=== PATIENT | male | born 1950 | race Caucasian/White ===

== ENCOUNTER 2016-11-18 21:54 | Inpatient (IN) | payer OTHER ==
[~2016-11-18] VITALS: Ht 190.5 cm; Wt 116.8 kg
[~2016-11-18 21:54] MED LIST: AMLO5TAB88 PO; ASPI-986 PO; ATOR10TA PO; INSLIS SUBCUT; LEVVL SUBCUT; LOV30 SUBCUT
[2016-11-18] MEDS ORDERED: ACETAMINOPHEN 325MG TABLET PO STA (22:24)
[2016-11-18] MEDS ORDERED: KETOROLAC 30MG/ML VIAL IV STA (22:24)
[2016-11-18] MEDS ORDERED: VANCOMYCIN 1 G PREMIX 200 ML IV ONE (22:30)
[2016-11-18] MEDS ORDERED: PIPERACILLIN/TAZ 3.375G PREMIX 50 ML IV ONE (22:30)
[2016-11-18] MEDS ORDERED: SODIUM CHLORIDE 0.9% 1000ML BAG (SEPSIS BOLUS) IV ONE (22:30)
[2016-11-18 22:46] LABS: BG BASE EXCESS 3.2 mmol/L (-2.0-2.0); BG CARBOXYHEMOGLOBIN 0.1 % (0.5-1.5); BG FRACTION INSPIRED OXYGEN 21; BG HCO3 ACT 27.8 mmol/L (22.0-26.0); BG METHEMOGLOBIN 0.3 % (0.0-1.5); BG OXYHEMOGLOBIN 91.6 % (94.0-97.0); BG PCO2 42.3 mmHg (35.0-45.0); BG PH 7.436 (7.350-7.450); BG PO2 61.1 mmHg (75.0-100.0); BG SAMPLE SITE RIGHT RADIAL; BG TOTAL HEMOGLOBIN 13.8 g/dL (12.0-18.0); BG VENT MODE ROOM AIR
[2016-11-18 22:48] LABS: CLARITY URINE CLEAR (CLEAR); COLOR URINE YELLOW (YELLOW); GLUCOSE URINE 2+ (NEGATIVE); KETONES URINE NEGATIVE (NEGATIVE); LEUKOCYTE ESTERASE URINE NEGATIVE (NEGATIVE); NITRITE URINE NEGATIVE (NEGATIVE); OCCULT BLOOD URINE NEGATIVE (NEGATIVE); PH URINE 5.5 (4.5-8.0); PROTEIN URINE 4+ (NEGATIVE); SPECIFIC GRAVITY URINE 1.019 (1.005-1.030); UROBILINOGEN URINE 0.2 E.U./dL (0.2-1.0)
[2016-11-18 23:10] LABS: BASOPHILS % 0.5 % (0.0-2.0); EOSINOPHILS % 0.2 % (0.0-5.0); HEMATOCRIT. 38.7 % (42.0-52.0); HEMOGLOBIN. 13.3 g/dL (14.0-18.0); LYMPHOCYTES % 14.3 % (20.0-50.0); MEAN CORPUSCULAR HEMOGLOBIN 32.1 pg (28.0-32.0); MEAN CORPUSCULAR VOLUME 93.6 fL (80.0-94.0); MEAN PLATELET VOLUME 7.6 fl (7.4-10.4); MONOCYTES % 11.4 % (2.0-8.0); NEUTROPHILS % 73.6 % (40.0-76.0); PLATELET 225 x1000/uL (130-400); RED BLOOD CELL COUNT 4.13 mill/uL (4.7-6.1); RED CELL DISTRIBUTION WIDTH 13.4 % (11.6-14.6)
[2016-11-18 23:12] LABS: INR 1.1; PROTHROMBIN TIME 11.4 sec
[2016-11-18 23:18] LABS: *AMPHETAMINES SCREEN URINE NEGATIVE (NEGATIVE); *BARBITURATES SCREEN URINE NEGATIVE (NEGATIVE); *BENZODIAZEPINES SCREEN URINE NEGATIVE (NEGATIVE); *COCAINE SCREEN URINE NEGATIVE (NEGATIVE); CANNABINOID URINE SCREEN NEGATIVE (NEGATIVE); METHADONE URINE SCREEN NEGATIVE (NEGATIVE); OPIATES URINE SCREEN PRESUMTIVE POSITIVE (NEGATIVE); PHENCYCLIDINE URINE SCREEN NEGATIVE (NEGATIVE)
[2016-11-18 23:21] LABS: CARBON DIOXIDE 31 mEq/L (21-32); CHLORIDE 99 mEq/L (98-107); ETHANOL BLOOD < 10 mg/dL; TROPONIN I 0.04 ng/mL (0.00-0.04)
[2016-11-19] VITALS (7 sets, daily range): BP systolic 127–161; BP diastolic 74–102
[2016-11-19] MEDS ORDERED: OSELTAMIVIR 75MG CAPSULE PO ONE (00:15)
[2016-11-19] MEDS ORDERED: CLONIDINE 0.1MG TABLET PO PRN (00:30)
[2016-11-19] MEDS ORDERED: DOCUSATE SODIUM 100MG CAPSULE PO PRN (00:30)
[2016-11-19] MEDS ORDERED: NA PHOS,M-B/NA PHOS,DI-BA ENEMA 118ML PR PRN (00:30)
[2016-11-19] MEDS ORDERED: ONDANSETRON HCL 4MG/2ML VIAL IV PRN (00:30)
[2016-11-19] MEDS ORDERED: HYDROCODONE/ACETAMINOPHEN 5/325MG TABLET PO PRN (00:30)
[2016-11-19] MEDS ORDERED: GUAIFENESIN 200MG/10ML SUGAR FREE UDC PO PRN (00:30)
[2016-11-19] MEDS ORDERED: ACETAMINOPHEN 325MG TABLET PO PRN (00:30)
[2016-11-19] MEDS ORDERED: HYDROMORPHONE HCL/PF 2MG/ML CPJ IV PRN (00:30)
[2016-11-19] MEDS ORDERED: LORAZEPAM 2MG/ML CPJ IV PRN (00:30)
[2016-11-19] MEDS ORDERED: DIPHENHYDRAMINE 50MG/ML VIAL IV PRN (00:30)
[2016-11-19] MEDS ORDERED: MAGNESIUM/ALUMINUM HYDROXIDE/SIMETHICONE 30ML UDC PO PRN (00:30)
[2016-11-19] MEDS ORDERED: DEXTROSE 50% WATER 50ML SYRINGE IV PRN (04:30)
[2016-11-19] MEDS: SODIUM CHLORIDE 0.45% 1,000 ML IV SCH ×2 (05:13→13:00)
[2016-11-19 06:36] LABS: BASOPHILS % 0.4 % (0.0-2.0); EOSINOPHILS % 0.2 % (0.0-5.0); HEMOGLOBIN. 11.6 g/dL (14.0-18.0); LYMPHOCYTES % 29.1 % (20.0-50.0); MEAN CORPUSCULAR HEMOGLOBIN 32.1 pg (28.0-32.0); MEAN CORPUSCULAR VOLUME 94.4 fL (80.0-94.0); MEAN PLATELET VOLUME 8.1 fl (7.4-10.4); MONOCYTES % 14.5 % (2.0-8.0); NEUTROPHILS % 55.8 % (40.0-76.0); PLATELET 185 x1000/uL (130-400); RED CELL DISTRIBUTION WIDTH 13.3 % (11.6-14.6)
[2016-11-19 06:59] LABS: CARBON DIOXIDE 27 mEq/L (21-32); CHLORIDE 105 mEq/L (98-107); HDL CHOLESTEROL 54 mg/dL (40-59); LDL CHOLESTEROL 56 mg/dL (5-100); T4 FREE 1.07 ng/dL (0.76-1.46)
[2016-11-19] MEDS: BLOOD SUGAR DIAGNOSTIC STRIP TEST SCH ×4 (07:40→21:00)
[2016-11-19] MEDS: OSELTAMIVIR 75MG CAPSULE PO SCH ×2 (08:57→20:44)
[2016-11-19] MEDS: ASPIRIN 81MG EC TABLET PO SCH (08:57)
[2016-11-19] MEDS: ENOXAPARIN 30MG/0.3ML SYR SUBCUT SCH ×2 (08:57→20:44)
[2016-11-19] MEDS: INSULIN LISPRO 100 UNITS/ML SUBCUT SCH ×4 (08:58→21:01)
[2016-11-19] MEDS ORDERED: ATOR-2 PO (23:13)
[2016-11-19] MEDS ORDERED: [UNRECOGNIZED DRUG - OTHER] (23:13)
[2016-11-19] MEDS ORDERED: HYDR100T26 PO (23:13)
[2016-11-19] MEDS ORDERED: SENN8.6T60 PO (23:13)
[2016-11-19] MEDS ORDERED: [UNRECOGNIZED DRUG - OTHER] PO (23:13)
[2016-11-19] MEDS ORDERED: BISA5TAB10 PO (23:13)
[2016-11-19] MEDS ORDERED: NIFE-1 PO (23:13)
[2016-11-19] MEDS ORDERED: HYDR-2510 PO (23:13)
[2016-11-19] MEDS ORDERED: FLUO-124 PO (23:13)
[2016-11-19] MEDS ORDERED: AMIO100T4 PO (23:13)
[2016-11-19] MEDS ORDERED: METO50TA5 PO (23:13)
[2016-11-20] VITALS: BP 137/107
[2016-11-20] MEDS: SODIUM CHLORIDE 0.45% 1,000 ML IV SCH ×2 (01:17→13:52)
[2016-11-20 04:00] VITALS: BP 134/86
[2016-11-20] MEDS: BLOOD SUGAR DIAGNOSTIC STRIP TEST SCH ×4 (07:57→21:20)
[2016-11-20 08:00] VITALS: BP 122/94
[2016-11-20] MEDS: ASPIRIN 81MG EC TABLET PO SCH (09:00)
[2016-11-20] MEDS: OSELTAMIVIR 75MG CAPSULE PO SCH ×2 (09:00→21:18)
[2016-11-20] MEDS: ENOXAPARIN 30MG/0.3ML SYR SUBCUT SCH ×2 (09:01→21:18)
[2016-11-20] MEDS: INSULIN LISPRO 100 UNITS/ML SUBCUT SCH ×4 (09:02→21:28)
[2016-11-20 12:00] VITALS: BP 114/77
[2016-11-20 16:00] VITALS: BP 144/89
[2016-11-20 20:00] VITALS: BP 153/97
[2016-11-21] VITALS (7 sets, daily range): BP systolic 145–167; BP diastolic 80–107
[2016-11-21] MEDS: SODIUM CHLORIDE 0.45% 1,000 ML IV SCH ×2 (03:35→14:41)
[2016-11-21] MEDS: BLOOD SUGAR DIAGNOSTIC STRIP TEST SCH ×3 (06:11→17:32)
[2016-11-21] MEDS: ASPIRIN 81MG EC TABLET PO SCH (09:44)
[2016-11-21] MEDS: OSELTAMIVIR 75MG CAPSULE PO SCH (09:51)
[2016-11-21] MEDS: ENOXAPARIN 30MG/0.3ML SYR SUBCUT SCH (09:52)
[2016-11-21] MEDS: INSULIN LISPRO 100 UNITS/ML SUBCUT SCH ×3 (09:53→18:22)
[2016-11-21] MEDS ORDERED: IPRATROPIUM/ALBUTEROL 0.5-3(2.5)MG/3ML NEB HHN SCH (16:00)
[2016-11-21] MEDS ORDERED: GUAIFENESIN 600MG ER TABLET PO SCH (21:00)
== END 2016-11-21 20:00 | disposition home or self-care (01) | DRG 682 ==
LOC: ER 22:13 → EDBEDREQ 22:35 → 7WST 11-19 00:14 → EDBEDREQSVC 11-19 00:20 → EDBEDREQ 11-19 00:20 → ENRESERV 11-19 01:33
PROVIDERS: ADMIT Internal Medicine; ATTEND Internal Medicine
DX: N17.9 Acute kidney failure, unspecified (principal); G93.40 Encephalopathy, unspecified; E43 Unspecified severe protein-calorie malnutrition; R65.11 Systemic inflammatory response syndrome (SIRS) of non-infectious origin with acute organ dysfunction; J09.X9 Influenza due to identified novel influenza A virus with other manifestations; E86.0 Dehydration; E11.40 Type 2 diabetes mellitus with diabetic neuropathy, unspecified; I10 Essential (primary) hypertension; I45.81 Long QT syndrome; E11.65 Type 2 diabetes mellitus with hyperglycemia; D64.9 Anemia, unspecified; M10.9 Gout, unspecified; R32 Unspecified urinary incontinence; E78.5 Hyperlipidemia, unspecified; E66.9 Obesity, unspecified; F32.9 Major depressive disorder, single episode, unspecified; F41.9 Anxiety disorder, unspecified; I48.0 Paroxysmal atrial fibrillation; Z91.19 Patient's noncompliance with other medical treatment and regimen; Z68.32 Body mass index [BMI] 32.0-32.9, adult; Z79.899 Other long term (current) drug therapy; Z79.82 Long term (current) use of aspirin; Z86.73 Personal history of transient ischemic attack (TIA), and cerebral infarction without residual deficits; Z82.49 Family history of ischemic heart disease and other diseases of the circulatory system; Z83.3 Family history of diabetes mellitus
CPT/HCPCS: 36415; 36600; 70450; 71010; 80048; 80053; 80061; 80305; 81001; 82375; 82805; 82962; 83605; 83690; 83880; 84439; 84443; 84484; 85025; 85610; 87040; 87086; 87804; 93005; 97110; 97162; 97530; 99285; G0482; J1200; J1650; J1815; J1885; J2060; J2543; J3370; J7030

== ENCOUNTER 2017-02-07 08:04 | Inpatient (IN) | payer OTHER ==
[~2017-02-07] VITALS: Ht 188 cm; Wt 122.5 kg
[~2017-02-07 08:04] MED LIST changes: +AMIO100T4 PO; +ATOR-2 PO; +BISA5TAB10 PO; +FLUO-124 PO; +HYDR-2510 PO; +HYDR100T26 PO; +METO50TA5 PO; +NIFE-1 PO; +SENN8.6T60 PO; +[UNRECOGNIZED DRUG - OTHER]; +[UNRECOGNIZED DRUG - OTHER] PO
[2017-02-07 09:34] LABS: BASOPHILS % 0.5 % (0.0-2.0); HEMATOCRIT. 32.9 % (42.0-52.0); LYMPHOCYTES % 7.6 % (20.0-50.0); MEAN CORPUSCULAR HEMOGLOBIN 31.2 pg (28.0-32.0); MEAN CORPUSCULAR VOLUME 93.5 fL (80.0-94.0); MEAN PLATELET VOLUME 7.8 fl (7.4-10.4); MONOCYTES % 4.9 % (2.0-8.0); PLATELET 242 x1000/uL (130-400); RED BLOOD CELL COUNT 3.51 mill/uL (4.7-6.1); RED CELL DISTRIBUTION WIDTH 13.8 % (11.6-14.6)
[2017-02-07 09:37] LABS: INR 1.1; PROTHROMBIN TIME 11.1 sec (9.4-11.6)
[2017-02-07 09:48] LABS: CARBON DIOXIDE 27 mEq/L (21-32); CHLORIDE 104 mEq/L (98-107); TROPONIN I 0.05 ng/mL (0.00-0.04)
[2017-02-07] MEDS ORDERED: LEVOFLOXACIN 750MG PREMIX 150 ML IV ONE (10:45)
[2017-02-07] MEDS ORDERED: ASPIRIN 81MG TABLET PO ONE (10:45)
[2017-02-07 17:22] VITALS: BP 130/100
[2017-02-07] MEDS ORDERED: NA PHOS,M-B/NA PHOS,DI-BA ENEMA 118ML PR PRN (17:30)
[2017-02-07] MEDS ORDERED: ACETAMINOPHEN 650MG/20.3ML UDC GT PRN (17:30)
[2017-02-07] MEDS ORDERED: ACETAMINOPHEN 650MG SUPP PR PRN (17:30)
[2017-02-07] MEDS ORDERED: ONDANSETRON HCL 4MG/2ML VIAL IV PRN (17:30)
[2017-02-07] MEDS ORDERED: CLONIDINE 0.1MG TABLET PO PRN (17:30)
[2017-02-07] MEDS ORDERED: IPRATROPIUM/ALBUTEROL 0.5-3(2.5)MG/3ML NEB INH PRN (17:30)
[2017-02-07] MEDS ORDERED: MAGNESIUM/ALUMINUM HYDROXIDE/SIMETHICONE 30ML UDC PO PRN (17:30)
[2017-02-07] MEDS ORDERED: HYDROCODONE/ACETAMINOPHEN 5/325MG TABLET PO PRN (17:30)
[2017-02-07] MEDS ORDERED: IPRATROPIUM/ALBUTEROL 0.5-3(2.5)MG/3ML NEB INH SCH (18:00)
[2017-02-07] MEDS ORDERED: DEXTROSE 50% WATER 50ML SYRINGE IV PRN (19:00)
[2017-02-07] MEDS ORDERED: SENN-22 PO (19:40)
[2017-02-07] MEDS ORDERED: APIXABAN (19:40)
[2017-02-07 19:50] LABS: CLARITY URINE CLEAR (CLEAR); COLOR URINE YELLOW (YELLOW); GLUCOSE URINE 2+ (NEGATIVE); KETONES URINE NEGATIVE (NEGATIVE); LEUKOCYTE ESTERASE URINE NEGATIVE (NEGATIVE); NITRITE URINE NEGATIVE (NEGATIVE); OCCULT BLOOD URINE NEGATIVE (NEGATIVE); PH URINE 5.5 (4.5-8.0); PROTEIN URINE 3+ (NEGATIVE); SPECIFIC GRAVITY URINE 1.017 (1.005-1.030); UROBILINOGEN URINE 0.2 E.U./dL (0.2-1.0)
[2017-02-07 20:00] VITALS: BP 126/60
[2017-02-07 20:04] LABS: *AMPHETAMINES SCREEN URINE NEGATIVE (NEGATIVE); *BARBITURATES SCREEN URINE NEGATIVE (NEGATIVE); *BENZODIAZEPINES SCREEN URINE NEGATIVE (NEGATIVE); *COCAINE SCREEN URINE NEGATIVE (NEGATIVE); CANNABINOID URINE SCREEN NEGATIVE (NEGATIVE); METHADONE URINE SCREEN NEGATIVE (NEGATIVE); OPIATES URINE SCREEN NEGATIVE (NEGATIVE); PHENCYCLIDINE URINE SCREEN NEGATIVE (NEGATIVE)
[2017-02-07] MEDS: IPRATROPIUM/ALBUTEROL 0.5-3(2.5)MG/3ML NEB HHN SCH (20:50)
[2017-02-07] MEDS: BLOOD SUGAR DIAGNOSTIC STRIP TEST SCH (21:00)
[2017-02-07] MEDS: GUAIFENESIN 600MG ER TABLET PO SCH (22:29)
[2017-02-07] MEDS: SODIUM CHLORIDE 0.9% INJ 3ML FLUSH IVF SCH (22:30)
[2017-02-07] MEDS: INSULIN LISPRO 100 UNITS/ML SUBCUT SCH (22:30)
[2017-02-07 23:02] LABS: TROPONIN I 0.05 ng/mL (0.00-0.04)
[2017-02-08] VITALS: BP 146/71
[2017-02-08 04:00] VITALS: BP 127/58
[2017-02-08] MEDS: IPRATROPIUM/ALBUTEROL 0.5-3(2.5)MG/3ML NEB HHN SCH ×7 (04:00→23:41)
[2017-02-08 05:59] LABS: TROPONIN I 0.05 ng/mL (0.00-0.04)
[2017-02-08] MEDS: SODIUM CHLORIDE 0.9% INJ 3ML FLUSH IVF SCH ×3 (06:26→21:52)
[2017-02-08] MEDS: BLOOD SUGAR DIAGNOSTIC STRIP TEST SCH ×4 (06:50→21:51)
[2017-02-08 08:00] VITALS: BP 130/94
[2017-02-08] MEDS: GUAIFENESIN 600MG ER TABLET PO SCH ×2 (08:31→21:51)
[2017-02-08] MEDS: INSULIN LISPRO 100 UNITS/ML SUBCUT SCH ×4 (08:32→21:52)
[2017-02-08 09:48] LABS: T4 FREE 1.52 ng/dL (0.76-1.46)
[2017-02-08 12:00] VITALS: BP 126/56
[2017-02-08] MEDS: METOPROLOL TARTRATE 50MG TABLET PO SCH ×2 (13:24→21:51)
[2017-02-08] MEDS: LEVOFLOXACIN 750MG PREMIX 150 ML IV SCH (13:25)
[2017-02-08 15:10] LABS: CREATINE KINASE MB FRACTION 1.5 ng/mL (0.5-3.6); TROPONIN I 0.05 ng/mL (0.00-0.04)
[2017-02-08 17:02] VITALS: BP 142/75
[2017-02-08] MEDS ORDERED: CEPH-569 PO (17:05)
[2017-02-08 18:13] LABS: BASOPHILS % 0.3 % (0.0-2.0); EOSINOPHILS % 0.3 % (0.0-5.0); HEMATOCRIT. 29.9 % (42.0-52.0); LYMPHOCYTES % 14.7 % (20.0-50.0); MEAN CORPUSCULAR HEMOGLOBIN 31.2 pg (28.0-32.0); MEAN CORPUSCULAR VOLUME 93.1 fL (80.0-94.0); MONOCYTES % 9.6 % (2.0-8.0); NEUTROPHILS % 75.1 % (40.0-76.0); PLATELET 233 x1000/uL (130-400); RED BLOOD CELL COUNT 3.21 mill/uL (4.7-6.1); RED CELL DISTRIBUTION WIDTH 13.5 % (11.6-14.6)
[2017-02-08 18:24] LABS: CHLORIDE 104 mEq/L (98-107)
[2017-02-08 18:32] LABS: CARBON DIOXIDE 26 mEq/L (21-32)
[2017-02-08 20:00] VITALS: BP 134/79
[2017-02-08 22:52] LABS: TROPONIN I 0.06 ng/mL (0.00-0.04)
[2017-02-09 00:03] VITALS: BP 118/62
[2017-02-09] MEDS: IPRATROPIUM/ALBUTEROL 0.5-3(2.5)MG/3ML NEB HHN SCH ×5 (03:04→20:00)
[2017-02-09 04:00] VITALS: BP 120/60
[2017-02-09] MEDS: SODIUM CHLORIDE 0.9% INJ 3ML FLUSH IVF SCH ×2 (05:51→21:59)
[2017-02-09 06:44] LABS: CREATINE KINASE MB FRACTION 1.3 ng/mL (0.5-3.6); TROPONIN I 0.04 ng/mL (0.00-0.04)
[2017-02-09] MEDS: BLOOD SUGAR DIAGNOSTIC STRIP TEST SCH ×4 (06:46→22:37)
[2017-02-09 08:00] VITALS: BP 152/94
[2017-02-09] MEDS: INSULIN LISPRO 100 UNITS/ML SUBCUT SCH ×4 (08:58→22:34)
[2017-02-09] MEDS: GUAIFENESIN 600MG ER TABLET PO SCH ×2 (08:59→21:59)
[2017-02-09] MEDS: METOPROLOL TARTRATE 50MG TABLET PO SCH ×2 (08:59→21:59)
[2017-02-09 11:41] VITALS: BP 142/71
[2017-02-09] MEDS: LEVOFLOXACIN 750MG PREMIX 150 ML IV SCH (11:50)
[2017-02-09] MEDS: LOSARTAN POTASSIUM 25 MG TABLET PO SCH (13:11)
[2017-02-09 16:00] VITALS: BP 127/57
[2017-02-09] MEDS: ACETAMINOPHEN 325MG TABLET PO PRN (17:55)
[2017-02-09 20:00] VITALS: BP 140/63
[2017-02-10] VITALS: BP 122/54
[2017-02-10 04:00] VITALS: BP 137/77
[2017-02-10] MEDS: IPRATROPIUM/ALBUTEROL 0.5-3(2.5)MG/3ML NEB HHN SCH ×6 (05:08→20:23)
[2017-02-10] MEDS: SODIUM CHLORIDE 0.9% INJ 3ML FLUSH IVF SCH ×3 (05:56→21:37)
[2017-02-10] MEDS: BLOOD SUGAR DIAGNOSTIC STRIP TEST SCH ×4 (05:56→21:38)
[2017-02-10 07:19] VITALS: BP 129/59
[2017-02-10] MEDS: METOPROLOL TARTRATE 50MG TABLET PO SCH ×2 (08:52→21:36)
[2017-02-10] MEDS: LOSARTAN POTASSIUM 25 MG TABLET PO SCH (08:52)
[2017-02-10] MEDS: GUAIFENESIN 600MG ER TABLET PO SCH ×2 (08:52→21:36)
[2017-02-10] MEDS: INSULIN LISPRO 100 UNITS/ML SUBCUT SCH ×4 (08:54→21:38)
[2017-02-10] MEDS: LEVOFLOXACIN 750MG PREMIX 150 ML IV SCH (10:48)
[2017-02-10 11:06] VITALS: BP 133/61
[2017-02-10 15:03] LABS: BASOPHILS % 0.6 % (0.0-2.0); EOSINOPHILS % 0.8 % (0.0-5.0); HEMATOCRIT. 28.3 % (42.0-52.0); HEMOGLOBIN. 9.5 g/dL (14.0-18.0); LYMPHOCYTES % 17.1 % (20.0-50.0); MEAN CORPUSCULAR HEMOGLOBIN 31.5 pg (28.0-32.0); MEAN CORPUSCULAR VOLUME 93.5 fL (80.0-94.0); MEAN PLATELET VOLUME 8.1 fl (7.4-10.4); MONOCYTES % 8.3 % (2.0-8.0); NEUTROPHILS % 73.2 % (40.0-76.0); PLATELET 238 x1000/uL (130-400); RED BLOOD CELL COUNT 3.03 mill/uL (4.7-6.1); RED CELL DISTRIBUTION WIDTH 13.6 % (11.6-14.6)
[2017-02-10 15:22] VITALS: BP 116/74
[2017-02-10] MEDS ORDERED: LEVO750T21 PO (18:30)
[2017-02-10 20:00] VITALS: BP 150/44
[2017-02-10] MEDS: ACETAMINOPHEN 325MG TABLET PO PRN (21:35)
[2017-02-11] VITALS: BP 142/86
[2017-02-11] MEDS: IPRATROPIUM/ALBUTEROL 0.5-3(2.5)MG/3ML NEB HHN SCH ×5 (00:32→16:19)
[2017-02-11 04:00] VITALS: BP 133/88
[2017-02-11] MEDS: SODIUM CHLORIDE 0.9% INJ 3ML FLUSH IVF SCH (05:42)
[2017-02-11] MEDS: BLOOD SUGAR DIAGNOSTIC STRIP TEST SCH ×2 (05:43→12:52)
[2017-02-11 08:00] VITALS: BP 143/82
[2017-02-11] MEDS: METOPROLOL TARTRATE 50MG TABLET PO SCH (08:13)
[2017-02-11] MEDS: GUAIFENESIN 600MG ER TABLET PO SCH (08:13)
[2017-02-11] MEDS: INSULIN LISPRO 100 UNITS/ML SUBCUT SCH ×2 (08:15→13:44)
[2017-02-11] MEDS ORDERED: LEVOFLOXACIN 250MG TABLET PO SCH (11:00)
[2017-02-11] MEDS: LEVOFLOXACIN 750MG PREMIX 150 ML IV SCH (11:23)
[2017-02-11 11:57] VITALS: BP 110/65
[2017-02-11] MEDS ORDERED: BISACODYL 5MG TABLET PO SCH (13:15)
[2017-02-11] MEDS ORDERED: APIXABAN 5 MG SCH (13:15)
[2017-02-11] MEDS ORDERED: MEDICATION NOT ON FORMULARY EA (Amiodarone HCl 200 MG) PO SCH (13:15)
[2017-02-11] MEDS ORDERED: SENNOSIDES 8.6MG TABLET PO SCH ×2 (13:15)
[2017-02-11] MEDS ORDERED: ASPIRIN 325MG TABLET PO SCH (13:15)
[2017-02-11 13:25] VITALS: BP_SYST 128; BP_SYST 143; BP_DIAS 57; BP_DIAS 82
[2017-02-11] MEDS ORDERED: AMIODARONE HCL 200 MG TABLET PO SCH (13:30)
[2017-02-11] MEDS ORDERED: FLUOXETINE HCL 20MG CAPSULE PO SCH (13:30)
[2017-02-11 16:00] VITALS: BP 128/57
[2017-02-11 16:37] LABS: BASOPHILS % 0.4 % (0.0-2.0); EOSINOPHILS % 1.6 % (0.0-5.0); HEMATOCRIT. 29.4 % (42.0-52.0); HEMOGLOBIN. 9.8 g/dL (14.0-18.0); MEAN CORPUSCULAR HEMOGLOBIN 31.2 pg (28.0-32.0); MEAN CORPUSCULAR VOLUME 93.3 fL (80.0-94.0); MEAN PLATELET VOLUME 7.8 fl (7.4-10.4); MONOCYTES % 9.4 % (2.0-8.0); NEUTROPHILS % 70.6 % (40.0-76.0); PLATELET 257 x1000/uL (130-400); RED BLOOD CELL COUNT 3.15 mill/uL (4.7-6.1); RED CELL DISTRIBUTION WIDTH 13.9 % (11.6-14.6)
[2017-02-11] MEDS ORDERED: APIXABAN 5 MG TABLET PO SCH (17:00)
[2017-02-11 17:07] LABS: CARBON DIOXIDE 29 mEq/L (21-32); CHLORIDE 106 mEq/L (98-107)
[2017-02-11] MEDS ORDERED: INSULIN LISPRO 100 UNITS/ML SUBCUT SCH (18:10)
[2017-02-11] MEDS ORDERED: ATORVASTATIN CALCIUM 10MG TABLET PO SCH (21:00)
[2017-02-11] MEDS ORDERED: INSULIN DETEMIR UD 100 UNITS/ML SYR SUBCUT SCH (22:00)
== END 2017-02-11 17:30 | disposition home or self-care (01) | DRG 871 ==
LOC: ER 08:04 → 7WST 13:16 → EDBEDREQ 13:24 → ENRESERV 14:01 → CANBEDREQ 16:11
PROVIDERS: ADMIT Family Medicine; ATTEND Family Medicine
DX: A41.9 Sepsis, unspecified organism (principal); J18.9 Pneumonia, unspecified organism; J96.01 Acute respiratory failure with hypoxia; E43 Unspecified severe protein-calorie malnutrition; N17.9 Acute kidney failure, unspecified; G93.40 Encephalopathy, unspecified; E11.22 Type 2 diabetes mellitus with diabetic chronic kidney disease; E11.65 Type 2 diabetes mellitus with hyperglycemia; D63.8 Anemia in other chronic diseases classified elsewhere; E78.00 Pure hypercholesterolemia, unspecified; E78.5 Hyperlipidemia, unspecified; Z86.73 Personal history of transient ischemic attack (TIA), and cerebral infarction without residual deficits; Z91.19 Patient's noncompliance with other medical treatment and regimen; N18.9 Chronic kidney disease, unspecified; Z79.82 Long term (current) use of aspirin; Z79.899 Other long term (current) drug therapy; I12.9 Hypertensive chronic kidney disease with stage 1 through stage 4 chronic kidney disease, or unspecified chronic kidney disease
CPT/HCPCS: 36415; 70450; 71010; 76770; 78580; 80048; 80053; 80061; 80305; 81001; 82550; 82553; 82962; 83036; 83880; 84439; 84443; 84484; 85025; 85379; 85610; 87040; 87804; 93005; 93306; 93970; 94640; 96365; 96366; 97162; 99291; J1815; J1956; J7050; J7620

== ENCOUNTER 2017-02-27 13:27 | Emergency (ER) | payer OTHER ==
[~2017-02-27] VITALS: Ht 190.5 cm; Wt 113.0 kg
[~2017-02-27 13:27] MED LIST changes: -AMLO5TAB88 PO; +APIXABAN; -ATOR-2 PO; +CEPH-569 PO; -HYDR-2510 PO; -HYDR100T26 PO; +LEVO750T21 PO; -LOV30 SUBCUT; -NIFE-1 PO; +SENN-22 PO; -[UNRECOGNIZED DRUG - OTHER] PO
[2017-02-27 15:27] VITALS: BP 144/73
[2017-02-27] MEDS ORDERED: ACETAMINOPHEN 500MG TABLET PO ONE (18:15)
[2017-03-24] MEDS ORDERED: FURO-151 PO (13:15)
[2017-04-14] MEDS ORDERED: FURO-151 PO (20:45)
== END 2017-02-27 19:14 | disposition home or self-care (01) ==
LOC: ER 13:37
DX: S00.93XA Contusion of unspecified part of head, initial encounter (principal); I10 Essential (primary) hypertension; E78.00 Pure hypercholesterolemia, unspecified; E11.9 Type 2 diabetes mellitus without complications; Z79.82 Long term (current) use of aspirin; Z79.4 Long term (current) use of insulin; Z86.73 Personal history of transient ischemic attack (TIA), and cerebral infarction without residual deficits; W01.0XXA Fall on same level from slipping, tripping and stumbling without subsequent striking against object, initial encounter; Y93.89 Activity, other specified; Y92.091 Bathroom in other non-institutional residence as the place of occurrence of the external cause; Y99.8 Other external cause status
CPT/HCPCS: 93005; 99283

== ENCOUNTER 2017-03-23 06:19 | Inpatient (IN) | payer OTHER ==
[~2017-03-23] VITALS: Ht 190.5 cm; Wt 113.4 kg
[2017-03-23] MEDS ORDERED: ALBUTEROL (0.083%) 2.5MG/3ML NEB HHN STA (07:47)
[2017-03-23] MEDS ORDERED: IPRATROPIUM BROMIDE (0.02%) 0.5MG/2.5ML NEB HHN STA (07:47)
[2017-03-23] MEDS ORDERED: FUROSEMIDE 20MG/2ML VIAL IVP ONE (08:00)
[2017-03-23 08:37] LABS: BASOPHILS % 0.2 % (0.0-2.0); EOSINOPHILS % 0.3 % (0.0-5.0); HEMATOCRIT. 31.7 % (42.0-52.0); HEMOGLOBIN. 10.4 g/dL (14.0-18.0); LYMPHOCYTES % 9.6 % (20.0-50.0); MEAN CORPUSCULAR HEMOGLOBIN 30.7 pg (28.0-32.0); MEAN CORPUSCULAR VOLUME 93.3 fL (80.0-94.0); MEAN PLATELET VOLUME 7.9 fl (7.4-10.4); MONOCYTES % 5.3 % (2.0-8.0); NEUTROPHILS % 84.6 % (40.0-76.0); PLATELET 278 x1000/uL (130-400); RED BLOOD CELL COUNT 3.39 mill/uL (4.7-6.1); RED CELL DISTRIBUTION WIDTH 14.4 % (11.6-14.6)
[2017-03-23 08:40] LABS: INR 1.1; PROTHROMBIN TIME 11.2 sec (9.4-11.6)
[2017-03-23 08:50] LABS: CARBON DIOXIDE 27 mEq/L (21-32); CHLORIDE 102 mEq/L (98-107); TROPONIN I 0.02 ng/mL (0.00-0.04)
[2017-03-23 09:03] LABS: GLUCOSE URINE TRACE (NEGATIVE); KETONES URINE NEGATIVE (NEGATIVE); LEUKOCYTE ESTERASE URINE NEGATIVE (NEGATIVE); NITRITE URINE NEGATIVE (NEGATIVE); OCCULT BLOOD URINE NEGATIVE (NEGATIVE); PROTEIN URINE 3+ (NEGATIVE); SPECIFIC GRAVITY URINE 1.015 (1.005-1.030); UROBILINOGEN URINE 0.2 E.U./dL (0.2-1.0)
[2017-03-23 09:04] LABS: CLARITY URINE CLEAR (CLEAR); COLOR URINE YELLOW (YELLOW)
[2017-03-23 11:15] VITALS: BP 127/59
[2017-03-23 12:00] VITALS: BP 127/59
[2017-03-23] MEDS ORDERED: CLONIDINE 0.1MG TABLET PO PRN (12:45)
[2017-03-23 16:00] VITALS: BP 145/72
[2017-03-23] MEDS ORDERED: IPRATROPIUM/ALBUTEROL 0.5-3(2.5)MG/3ML NEB HHN SCH ×2 (17:00)
[2017-03-23 17:56] LABS: BASOPHILS % 0.4 % (0.0-2.0); EOSINOPHILS % 0.3 % (0.0-5.0); HEMATOCRIT. 30.7 % (42.0-52.0); HEMOGLOBIN. 10.3 g/dL (14.0-18.0); LYMPHOCYTES % 18.9 % (20.0-50.0); MEAN CORPUSCULAR HEMOGLOBIN 31.4 pg (28.0-32.0); MEAN CORPUSCULAR VOLUME 93.8 fL (80.0-94.0); MEAN PLATELET VOLUME 8.1 fl (7.4-10.4); NEUTROPHILS % 70.4 % (40.0-76.0); PLATELET 272 x1000/uL (130-400); RED BLOOD CELL COUNT 3.28 mill/uL (4.7-6.1); RED CELL DISTRIBUTION WIDTH 14.4 % (11.6-14.6)
[2017-03-23 18:11] LABS: TROPONIN I 0.03 ng/mL (0.00-0.04)
[2017-03-23] MEDS ORDERED: DEXTROSE 50% WATER 50ML SYRINGE IV PRN (18:30)
[2017-03-23 20:00] VITALS: BP 129/57
[2017-03-23] MEDS: BLOOD SUGAR DIAGNOSTIC STRIP TEST SCH (20:26)
[2017-03-23] MEDS: INSULIN LISPRO 100 UNITS/ML SUBCUT SCH (20:41)
[2017-03-23] MEDS: ENOXAPARIN 30MG/0.3ML SYR SUBCUT SCH (20:41)
[2017-03-24] VITALS: BP 148/87
[2017-03-24 04:00] VITALS: BP 138/84
[2017-03-24] MEDS: BLOOD SUGAR DIAGNOSTIC STRIP TEST SCH (05:50)
[2017-03-24] MEDS: INSULIN LISPRO 100 UNITS/ML SUBCUT SCH (06:52)
[2017-03-24 07:45] VITALS: BP 130/67
[2017-03-24 08:23] LABS: *AMPHETAMINES SCREEN URINE NEGATIVE (NEGATIVE); *BARBITURATES SCREEN URINE NEGATIVE (NEGATIVE); *BENZODIAZEPINES SCREEN URINE NEGATIVE (NEGATIVE); *COCAINE SCREEN URINE NEGATIVE (NEGATIVE); CANNABINOID URINE SCREEN NEGATIVE (NEGATIVE); METHADONE URINE SCREEN NEGATIVE (NEGATIVE); OPIATES URINE SCREEN NEGATIVE (NEGATIVE); PHENCYCLIDINE URINE SCREEN NEGATIVE (NEGATIVE)
[2017-03-24] MEDS: ENOXAPARIN 30MG/0.3ML SYR SUBCUT SCH (08:31)
[2017-03-24] MEDS ORDERED: FUROSEMIDE 40MG/4ML VIAL IVP SCH (09:00)
[2017-03-24 11:25] VITALS: BP 130/67
[2017-03-24] MEDS ORDERED: FURO-151 PO (13:15)
== END 2017-03-24 13:40 | disposition home or self-care (01) | DRG 682 ==
LOC: ER 06:19 → 8WST 08:18 → EDBEDREQTM 08:21 → EDBEDREQ 08:21 → ENRESERV 09:00
PROVIDERS: ADMIT Family Medicine; ATTEND Family Medicine
DX: N17.0 Acute kidney failure with tubular necrosis (principal); E43 Unspecified severe protein-calorie malnutrition; I11.0 Hypertensive heart disease with heart failure; I48.0 Paroxysmal atrial fibrillation; I69.320 Aphasia following cerebral infarction; I50.9 Heart failure, unspecified; Z79.01 Long term (current) use of anticoagulants; E78.5 Hyperlipidemia, unspecified; D64.9 Anemia, unspecified; Z79.4 Long term (current) use of insulin; Z87.01 Personal history of pneumonia (recurrent); E11.65 Type 2 diabetes mellitus with hyperglycemia; E78.00 Pure hypercholesterolemia, unspecified; Z68.31 Body mass index [BMI] 31.0-31.9, adult
CPT/HCPCS: 36415; 71010; 76770; 80048; 80053; 80305; 81001; 82962; 83036; 83605; 83690; 83880; 84484; 85025; 85610; 87040; 87086; 93005; 93970; 94640; 96374; 99291; C1893; J1650; J1815; J1940; J7611; J7620

== ENCOUNTER 2017-04-01 05:03 | Inpatient (IN) | payer OTHER ==
[~2017-04-01] VITALS: Ht 190.5 cm; Wt 97.5 kg
[~2017-04-01 05:03] MED LIST changes: +FURO-151 PO; -LEVO750T21 PO; -SENN8.6T60 PO
[2017-04-01] MEDS ORDERED: ASPIRIN 81MG TABLET PO ONE (06:00)
[2017-04-01] MEDS ORDERED: NITROGLYCERIN OINT 1GM/INCH UDPKT TD ONE (06:00)
[2017-04-01] MEDS ORDERED: FUROSEMIDE 40MG/4ML VIAL IV ONE (06:00)
[2017-04-01 06:33] LABS: BASOPHILS % 0.4 % (0.0-2.0); EOSINOPHILS % 0.6 % (0.0-5.0); HEMATOCRIT. 31.2 % (42.0-52.0); HEMOGLOBIN. 10.4 g/dL (14.0-18.0); LYMPHOCYTES % 13.3 % (20.0-50.0); MEAN CORPUSCULAR HEMOGLOBIN 31.1 pg (28.0-32.0); MEAN CORPUSCULAR VOLUME 93.7 fL (80.0-94.0); MEAN PLATELET VOLUME 7.9 fl (7.4-10.4); MONOCYTES % 8.2 % (2.0-8.0); NEUTROPHILS % 77.5 % (40.0-76.0); PLATELET 248 x1000/uL (130-400); RED BLOOD CELL COUNT 3.33 mill/uL (4.7-6.1); RED CELL DISTRIBUTION WIDTH 14.8 % (11.6-14.6)
[2017-04-01 06:38] LABS: INR 1.1; PARTIAL THROMBOPLASTIN TIME 30.8 sec (23.4-31.0); PROTHROMBIN TIME 11.4 sec (9.4-11.6)
[2017-04-01 06:40] LABS: CARBON DIOXIDE 26 mEq/L (21-32); CHLORIDE 104 mEq/L (98-107)
[2017-04-01 06:47] LABS: TROPONIN I < 0.02 ng/mL (0.00-0.04)
[2017-04-01 09:26] VITALS: BP 136/68
[2017-04-01] MEDS ORDERED: GUAIFENESIN 200MG/10ML SUGAR FREE UDC PO PRN (10:00)
[2017-04-01] MEDS ORDERED: LORAZEPAM 2MG/ML CPJ IV PRN (10:00)
[2017-04-01] MEDS ORDERED: ONDANSETRON HCL 4MG/2ML VIAL IV PRN (10:00)
[2017-04-01] MEDS ORDERED: DEXTROSE 50% WATER 50ML SYRINGE IV PRN (10:00)
[2017-04-01] MEDS ORDERED: NITROGLYCERIN 0.4MG TABLET SL SL PRN (10:00)
[2017-04-01] MEDS ORDERED: CLONIDINE 0.1MG TABLET PO PRN (10:00)
[2017-04-01] MEDS ORDERED: ACETAMINOPHEN 325MG TABLET PO PRN (10:00)
[2017-04-01] MEDS ORDERED: IPRATROPIUM/ALBUTEROL 0.5-3(2.5)MG/3ML NEB INH PRN (10:00)
[2017-04-01] MEDS ORDERED: NA PHOS,M-B/NA PHOS,DI-BA ENEMA 118ML PR PRN (10:00)
[2017-04-01] MEDS ORDERED: DIPHENHYDRAMINE 50MG/ML VIAL IV PRN (10:00)
[2017-04-01] MEDS ORDERED: DOCUSATE SODIUM 100MG CAPSULE PO PRN (10:00)
[2017-04-01] MEDS ORDERED: MAGNESIUM/ALUMINUM HYDROXIDE/SIMETHICONE 30ML UDC PO PRN (10:00)
[2017-04-01] MEDS ORDERED: KETOROLAC 15MG/ML VIAL IV PRN (10:15)
[2017-04-01] MEDS: PANTOPRAZOLE SODIUM 40 MG/VIAL IV SCH (11:32)
[2017-04-01] MEDS: GUAIFENESIN 600MG ER TABLET PO SCH ×2 (11:32→21:12)
[2017-04-01] MEDS: ENOXAPARIN 40MG/0.4ML SYR SUBCUT SCH (11:32)
[2017-04-01 12:05] VITALS: BP 136/68
[2017-04-01] MEDS: BLOOD SUGAR DIAGNOSTIC STRIP TEST SCH ×3 (13:20→21:11)
[2017-04-01] MEDS: INSULIN LISPRO 100 UNITS/ML SUBCUT SCH ×3 (13:21→21:10)
[2017-04-01 16:53] VITALS: BP 156/77
[2017-04-01 16:54] LABS: CREATINE KINASE MB FRACTION 1.5 ng/mL (0.5-3.6); TROPONIN I 0.02 ng/mL (0.00-0.04)
[2017-04-01] MEDS: SPIRONOLACTONE 25MG TABLET PO SCH (18:23)
[2017-04-01] MEDS ORDERED: ZOLPIDEM TARTRATE 5MG TABLET PO PRN (19:00)
[2017-04-01 19:45] LABS: FOLIC ACID (FOLATE) SERUM 10.6 ng/mL (>5.38)
[2017-04-01 20:00] VITALS: BP 128/59
[2017-04-01] MEDS ORDERED: NIFE30TA94 PO (20:15)
[2017-04-01] MEDS ORDERED: HYDR100T26 PO (20:15)
[2017-04-01] MEDS: LISINOPRIL 20MG TABLET PO SCH (21:13)
[2017-04-01] MEDS ORDERED: INSULIN DETEMIR UD 100 UNITS/ML SYR SUBCUT SCH (22:00)
[2017-04-01 23:50] LABS: CREATINE KINASE MB FRACTION 1.1 ng/mL (0.5-3.6); TROPONIN I 0.03 ng/mL (0.00-0.04)
[2017-04-02 00:02] VITALS: BP 138/74
[2017-04-02 04:00] VITALS: BP 133/76
[2017-04-02] MEDS: SPIRONOLACTONE 25MG TABLET PO SCH ×2 (06:36→18:00)
[2017-04-02] MEDS: BLOOD SUGAR DIAGNOSTIC STRIP TEST SCH ×3 (06:36→17:20)
[2017-04-02] MEDS: INSULIN LISPRO 100 UNITS/ML SUBCUT SCH ×3 (07:50→17:50)
[2017-04-02 08:00] VITALS: BP 134/73
[2017-04-02] MEDS ORDERED: ASPIRIN 325MG EC TABLET PO SCH (09:00)
[2017-04-02] MEDS: GUAIFENESIN 600MG ER TABLET PO SCH (10:26)
[2017-04-02] MEDS: PANTOPRAZOLE SODIUM 40 MG/VIAL IV SCH (10:26)
[2017-04-02] MEDS: LISINOPRIL 20MG TABLET PO SCH (10:26)
[2017-04-02] MEDS: ENOXAPARIN 40MG/0.4ML SYR SUBCUT SCH (10:27)
[2017-04-02 12:00] VITALS: BP 136/74
[2017-04-02 16:54] VITALS: BP 158/79
[2017-04-02 17:26] VITALS: BP 158/79
[2017-04-03] MEDS ORDERED: FAMOTIDINE 20MG/2ML VIAL IV SCH (09:00)
[2017-04-14] MEDS ORDERED: FURO-151 PO (20:45)
== END 2017-04-02 18:40 | disposition home or self-care (01) | DRG 291 ==
LOC: ER 05:03 → ENRESERV 08:05 → 6WST 08:18 → EDBEDREQTM 08:20 → EDBEDREQ 08:20
PROVIDERS: ADMIT Internal Medicine; ATTEND Internal Medicine
DX: I11.0 Hypertensive heart disease with heart failure (principal); N17.0 Acute kidney failure with tubular necrosis; E44.0 Moderate protein-calorie malnutrition; W19.XXXA Unspecified fall, initial encounter; E11.65 Type 2 diabetes mellitus with hyperglycemia; E66.01 Morbid (severe) obesity due to excess calories; D63.8 Anemia in other chronic diseases classified elsewhere; E78.00 Pure hypercholesterolemia, unspecified; I50.33 Acute on chronic diastolic (congestive) heart failure; Y93.89 Activity, other specified; Y92.89 Other specified places as the place of occurrence of the external cause; Y99.8 Other external cause status; Z86.73 Personal history of transient ischemic attack (TIA), and cerebral infarction without residual deficits; Z79.4 Long term (current) use of insulin; Z79.899 Other long term (current) drug therapy; Z68.26 Body mass index [BMI] 26.0-26.9, adult
CPT/HCPCS: 36415; 71010; 80053; 80061; 82553; 82607; 82746; 82962; 83036; 83605; 83880; 84484; 85025; 85610; 85730; 87040; 93005; 93970; 96374; 99285; C9113; J1650; J1815; J1940; J7030

== ENCOUNTER 2017-04-13 02:00 | Inpatient (IN) | payer OTHER ==
[2017-04-13] VITALS (8 sets, daily range): BP systolic 117–147; BP diastolic 53–67
[~2017-04-13] VITALS: Ht 175.3 cm; Wt 118.4 kg
[~2017-04-13 02:00] MED LIST changes: -ASPI-986 PO; -ATOR10TA PO; -BISA5TAB10 PO; -CEPH-569 PO; -FURO-151 PO; +HYDR100T26 PO; +NIFE30TA94 PO; -[UNRECOGNIZED DRUG - OTHER]
[2017-04-13] MEDS ORDERED: FUROSEMIDE 40MG/4ML VIAL IV STA (02:33)
[2017-04-13] MEDS ORDERED: ALBUTEROL (0.083%) 2.5MG/3ML NEB HHN STA (02:33)
[2017-04-13] MEDS ORDERED: METHYLPREDNISOLONE SOD SUCC 125 MG/2 ML VIAL IV STA (02:33)
[2017-04-13] MEDS ORDERED: NITROGLYCERIN OINT 1GM/INCH UDPKT TD STA (02:33)
[2017-04-13] MEDS ORDERED: ASPIRIN 81MG TABLET PO STA (02:33)
[2017-04-13] MEDS ORDERED: IPRATROPIUM BROMIDE (0.02%) 0.5MG/2.5ML NEB HHN STA (02:33)
[2017-04-13] MEDS ORDERED: IPRATROPIUM/ALBUTEROL 0.5-3(2.5)MG/3ML NEB ONE (02:40)
[2017-04-13 03:25] LABS: BASOPHILS % 0.6 % (0.0-2.0); EOSINOPHILS % 0.5 % (0.0-5.0); HEMATOCRIT. 28.5 % (42.0-52.0); HEMOGLOBIN. 9.4 g/dL (14.0-18.0); LYMPHOCYTES % 13.1 % (20.0-50.0); MEAN CORPUSCULAR HEMOGLOBIN 30.8 pg (28.0-32.0); MEAN CORPUSCULAR VOLUME 93.4 fL (80.0-94.0); MEAN PLATELET VOLUME 8.4 fl (7.4-10.4); MONOCYTES % 5.6 % (2.0-8.0); NEUTROPHILS % 80.2 % (40.0-76.0); PLATELET 241 x1000/uL (130-400); RED BLOOD CELL COUNT 3.05 mill/uL (4.7-6.1); RED CELL DISTRIBUTION WIDTH 15.4 % (11.6-14.6)
[2017-04-13 03:35] LABS: INR 1.1; PARTIAL THROMBOPLASTIN TIME 29.6 sec (23.4-31.0); PROTHROMBIN TIME 11.7 sec (9.4-11.6)
[2017-04-13 03:42] LABS: CARBON DIOXIDE 25 mEq/L (21-32); CHLORIDE 101 mEq/L (98-107); TROPONIN I 0.03 ng/mL (0.00-0.04)
[2017-04-13 04:13] LABS: BG BASE EXCESS -0.3 mmol/L (-2.0-2.0); BG BILEVEL POS AIRWAY PRESSURE 15/5; BG CARBOXYHEMOGLOBIN 0.4 % (0.5-1.5); BG DEOXYHEMOGLOBIN 3.2 % (0.0-5.0); BG FRACTION INSPIRED OXYGEN 50; BG HCO3 ACT 24.4 mmol/L (22.0-26.0); BG METHEMOGLOBIN 0.2 % (0.0-1.5); BG OXYGEN SATURATION 96.8 % (92.0-98.5); BG OXYHEMOGLOBIN 96.2 % (94.0-97.0); BG PCO2 39.8 mmHg (35.0-45.0); BG PH 7.405 (7.350-7.450); BG PO2 91.7 mmHg (75.0-100.0); BG SAMPLE SITE RIGHT BRACHIAL; BG TOTAL HEMOGLOBIN 9.7 g/dL (12.0-18.0); BG VENT MODE MASK - BIPAP; BG VENT RATE 14 set
[2017-04-13] MEDS ORDERED: MAGNESIUM/ALUMINUM HYDROXIDE/SIMETHICONE 30ML UDC PO PRN (08:00)
[2017-04-13] MEDS ORDERED: LORAZEPAM 0.5MG TABLET PO PRN (08:00)
[2017-04-13] MEDS ORDERED: ACETAMINOPHEN 650MG SUPP PR PRN (08:00)
[2017-04-13] MEDS ORDERED: IPRATROPIUM/ALBUTEROL 0.5-3(2.5)MG/3ML NEB INH PRN (08:00)
[2017-04-13] MEDS ORDERED: DOCUSATE SODIUM 100MG CAPSULE PO PRN (08:00)
[2017-04-13] MEDS ORDERED: CLONIDINE 0.1MG TABLET PO PRN (08:00)
[2017-04-13] MEDS ORDERED: GUAIFENESIN 200MG/10ML SUGAR FREE UDC PO PRN (08:00)
[2017-04-13] MEDS ORDERED: HYDROCODONE/ACETAMINOPHEN 5/325MG TABLET PO PRN (08:00)
[2017-04-13] MEDS ORDERED: NA PHOS,M-B/NA PHOS,DI-BA ENEMA 118ML PR PRN (08:00)
[2017-04-13] MEDS ORDERED: ACETAMINOPHEN 325MG TABLET PO PRN (08:00)
[2017-04-13] MEDS ORDERED: ACETAMINOPHEN 650MG/20.3ML UDC GT PRN (08:00)
[2017-04-13] MEDS ORDERED: DIPHENHYDRAMINE 50MG/ML VIAL IV PRN (08:00)
[2017-04-13] MEDS ORDERED: ONDANSETRON HCL 4MG/2ML VIAL IV PRN (08:00)
[2017-04-13] MEDS ORDERED: DEXTROSE 50% WATER 50ML SYRINGE IV PRN ×2 (08:15→14:15)
[2017-04-13] MEDS ORDERED: BLOOD SUGAR DIAGNOSTIC STRIP TEST SCH (08:31)
[2017-04-13] MEDS ORDERED: GLYBURIDE 5MG TABLET PO NR (09:34)
[2017-04-13] MEDS: FUROSEMIDE 40MG/4ML VIAL IV SCH ×2 (09:48→17:30)
[2017-04-13] MEDS: ENOXAPARIN 40MG/0.4ML SYR SUBCUT SCH (09:48)
[2017-04-13] MEDS: INSULIN LISPRO 100 UNITS/ML SUBCUT SCH ×4 (09:49→20:44)
[2017-04-13] MEDS: BLOOD SUGAR DIAGNOSTIC STRIP TEST SCH ×4 (09:49→20:22)
[2017-04-13 11:45] LABS: CLARITY URINE CLOUDY (CLEAR); COLOR URINE YELLOW (YELLOW); GLUCOSE URINE 1+ (NEGATIVE); KETONES URINE NEGATIVE (NEGATIVE); LEUKOCYTE ESTERASE URINE NEGATIVE (NEGATIVE); NITRITE URINE NEGATIVE (NEGATIVE); OCCULT BLOOD URINE NEGATIVE (NEGATIVE); PROTEIN URINE 3+ (NEGATIVE); SPECIFIC GRAVITY URINE 1.017 (1.005-1.030); UROBILINOGEN URINE 0.2 E.U./dL (0.2-1.0)
[2017-04-13] MEDS: IPRATROPIUM/ALBUTEROL 0.5-3(2.5)MG/3ML NEB INH SCH ×3 (12:00→20:43)
[2017-04-13 12:04] LABS: *AMPHETAMINES SCREEN URINE NEGATIVE (NEGATIVE); *BARBITURATES SCREEN URINE NEGATIVE (NEGATIVE); *BENZODIAZEPINES SCREEN URINE NEGATIVE (NEGATIVE); *COCAINE SCREEN URINE NEGATIVE (NEGATIVE); CANNABINOID URINE SCREEN NEGATIVE (NEGATIVE); METHADONE URINE SCREEN NEGATIVE (NEGATIVE); OPIATES URINE SCREEN NEGATIVE (NEGATIVE); PHENCYCLIDINE URINE SCREEN NEGATIVE (NEGATIVE)
[2017-04-13 13:53] LABS: AMMONIA < 25 uMol/L (<32)
[2017-04-13] MEDS ORDERED: INSULIN DETEMIR UD 100 UNITS/ML SYR SUBCUT NR (14:00)
[2017-04-13] MEDS: SODIUM CHLORIDE 0.9% INJ 3ML FLUSH IVF SCH ×2 (14:07→20:44)
[2017-04-13] MEDS ORDERED: GLYBURIDE 5MG TABLET PO SCH (16:50)
[2017-04-14] VITALS (12 sets, daily range): BP systolic 128–162; BP diastolic 52–106
[2017-04-14] MEDS: IPRATROPIUM/ALBUTEROL 0.5-3(2.5)MG/3ML NEB INH SCH ×4 (01:06→20:29)
[2017-04-14 06:31] LABS: BASOPHILS % 0.1 % (0.0-2.0); HEMATOCRIT. 25.1 % (42.0-52.0); HEMOGLOBIN. 8.5 g/dL (14.0-18.0); LYMPHOCYTES % 11.5 % (20.0-50.0); MEAN CORPUSCULAR HEMOGLOBIN 31.2 pg (28.0-32.0); MEAN CORPUSCULAR VOLUME 92.5 fL (80.0-94.0); MEAN PLATELET VOLUME 8.5 fl (7.4-10.4); MONOCYTES % 7.1 % (2.0-8.0); NEUTROPHILS % 81.3 % (40.0-76.0); PLATELET 220 x1000/uL (130-400); RED BLOOD CELL COUNT 2.71 mill/uL (4.7-6.1); RED CELL DISTRIBUTION WIDTH 15.3 % (11.6-14.6)
[2017-04-14] MEDS: BLOOD SUGAR DIAGNOSTIC STRIP TEST SCH ×4 (06:57→21:00)
[2017-04-14] MEDS: SODIUM CHLORIDE 0.9% INJ 3ML FLUSH IVF SCH ×3 (06:57→21:49)
[2017-04-14] MEDS: FUROSEMIDE 40MG/4ML VIAL IV SCH ×2 (06:57→17:34)
[2017-04-14 07:24] LABS: CHLORIDE 103 mEq/L (98-107)
[2017-04-14 07:31] LABS: CARBON DIOXIDE 26 mEq/L (21-32); HDL CHOLESTEROL 76 mg/dL (40-59); LDL CHOLESTEROL 50 mg/dL (5-100)
[2017-04-14] MEDS: ENOXAPARIN 40MG/0.4ML SYR SUBCUT SCH (08:10)
[2017-04-14] MEDS: INSULIN LISPRO 100 UNITS/ML SUBCUT SCH ×4 (08:16→21:15)
[2017-04-14] MEDS: INSULIN DETEMIR UD 100 UNITS/ML SYR SUBCUT SCH (15:00)
[2017-04-14] MEDS ORDERED: FURO-151 PO (20:45)
[2017-04-15] VITALS (7 sets, daily range): BP systolic 131–167; BP diastolic 70–90
[2017-04-15] MEDS: IPRATROPIUM/ALBUTEROL 0.5-3(2.5)MG/3ML NEB INH SCH ×2 (01:29→08:41)
[2017-04-15] MEDS: SODIUM CHLORIDE 0.9% INJ 3ML FLUSH IVF SCH (06:11)
[2017-04-15] MEDS: FUROSEMIDE 40MG/4ML VIAL IV SCH (07:03)
[2017-04-15 07:04] LABS: HEPATITIS B SURFACE ANTIGEN NEGATIVE
[2017-04-15 07:06] LABS: TOTAL IRON BINDING CAPACITY 283 ug/dL (250-450)
[2017-04-15] MEDS: BLOOD SUGAR DIAGNOSTIC STRIP TEST SCH ×2 (07:20→12:02)
[2017-04-15] MEDS: INSULIN LISPRO 100 UNITS/ML SUBCUT SCH (07:20)
[2017-04-15 07:32] LABS: HEPATITIS B CORE AB IGM NEGATIVE
[2017-04-15 07:34] LABS: HEPATITIS A AB IGM NEGATIVE (NEGATIVE)
[2017-04-15] MEDS: ENOXAPARIN 40MG/0.4ML SYR SUBCUT SCH (08:12)
[2017-04-15] MEDS: INSULIN DETEMIR UD 100 UNITS/ML SYR SUBCUT SCH (10:51)
[2017-04-16 09:08] LABS: IMMUNOGLOBULIN A 205 mg/dL (61-437); IMMUNOGLOBULIN G 801 mg/dL (700-1600); IMMUNOGLOBULIN M 51 mg/dL (20-172)
[2017-04-16 10:12] LABS: ALBUMIN 2.9 g/dL (2.9-4.4); ALPHA-1-GLOBULIN 0.2 g/dL (0.0-0.4); BETA GLOBULIN 0.8 g/dL (0.7-1.3); GAMMA GLOBULINS 0.8 g/dL (0.4-1.8); GLOBULIN TOTAL 2.8 g/dL (2.2-3.9); M-SPIKE Not Observed g/dL (Not Observed); TOTAL PROTEIN SERUM 5.7 g/dL (6.0-8.5)
== END 2017-04-15 12:00 | disposition home or self-care (01) | DRG 291 ==
LOC: ER 02:00 → 3WST 04:06 → EDBEDREQ 04:11 → ENRESERV 07:03
PROVIDERS: ADMIT Family Medicine; ATTEND Family Medicine
PROC: 5A09357 Assistance with Respiratory Ventilation, Less than 24 Consecutive Hours, Continuous Positive Airway Pressure (ICD-10-PCS; principal; 2017-04-13)
DX: I13.0 Hypertensive heart and chronic kidney disease with heart failure and stage 1 through stage 4 chronic kidney disease, or unspecified chronic kidney disease (principal); I50.33 Acute on chronic diastolic (congestive) heart failure; J96.00 Acute respiratory failure, unspecified whether with hypoxia or hypercapnia; N17.0 Acute kidney failure with tubular necrosis; G93.41 Metabolic encephalopathy; E87.4 Mixed disorder of acid-base balance; E44.0 Moderate protein-calorie malnutrition; Z99.11 Dependence on respirator [ventilator] status; E11.22 Type 2 diabetes mellitus with diabetic chronic kidney disease; I48.91 Unspecified atrial fibrillation; I69.354 Hemiplegia and hemiparesis following cerebral infarction affecting left non-dominant side; E11.65 Type 2 diabetes mellitus with hyperglycemia; I25.10 Atherosclerotic heart disease of native coronary artery without angina pectoris; E66.9 Obesity, unspecified; D64.9 Anemia, unspecified; E03.9 Hypothyroidism, unspecified; E78.5 Hyperlipidemia, unspecified; J44.9 Chronic obstructive pulmonary disease, unspecified; N18.3 Chronic kidney disease, stage 3 (moderate); Z79.01 Long term (current) use of anticoagulants; Z79.4 Long term (current) use of insulin; Z86.718 Personal history of other venous thrombosis and embolism; Z87.01 Personal history of pneumonia (recurrent); Z68.38 Body mass index [BMI] 38.0-38.9, adult; Z79.899 Other long term (current) drug therapy
CPT/HCPCS: 36415; 36600; 70450; 71010; 80053; 80061; 80305; 81001; 82140; 82375; 82784; 82805; 82962; 83540; 83550; 83605; 83880; 84155; 84165; 84484; 85018; 85025; 85610; 85730; 86334; 86703; 86705; 86709; 86803; 87040; 87340; 93005; 93306; 94640; 94644; 94660; 94664; 96374; 96375; 99291; J1650; J1815; J1940; J2930; J7620